=== PATIENT | female | born 1960 | race Caucasian/White ===

== ENCOUNTER → 2024-08-05 | Outpatient (CLI) | payer MEDICARE, OTHER ==
[~2024-08-05] MED LIST: BACL10 PO; BUME2 PO; ESTR2; GABA400; LEVO-T100 MCG PO; LOSARTAN POTAS100 MG PO; LOVA20; METF500 PO; METO100ER PO; MORP30ER PO; MORP50ER; NAPR500; Nortriptyline H50 MG PO; OMEP20ER; ONDA4ODT SL; POTCHL20ER PO; PRAV20 PO; SERT100; SERT100 PO; SULF500A PO; VITAMIN D2000 UNIT PO
== END | disposition home or self-care (01) ==
LOC: LAB 11:54 → LAB SHORT 11:54
DX: N39.0 Urinary tract infection, site not specified (principal)
CPT/HCPCS: 87086